=== PATIENT | female | born 1945 | race Caucasian/White ===

== ENCOUNTER 2018-02-09 07:06 | Inpatient (IN) ==
--- NOTE | 2018-02-08 16:23 | Discharge Summary ---
<Shade Mark - Last Filed: 02/09/18 07:53> Orders not resulted at time of discharge: Pending orders 02/09/18 01:00 XR knee LT limited 1-2V [XR] Routine XR knee RT limited 1-2V [XR] Routine Hemoglobin and Hematocrit [HEME] Routine 02/09/18 07:48 US anesthesia pain block [US] Routine Date of Encounter: 02/09/18 - Discharge Diagnosis (1) Obesity (BMI 35.0-39.9 without comorbidity) Priority: Secondary Status: Chronic (2) Osteoarthritis of knees, bilateral Priority: Primary Status: Chronic Qualifiers: Osteoarthritis type: unspecified Qualified Code(s): M17.0 - Bilateral primary osteoarthritis of knee (3) Status post total knee replacement, bilateral Priority: Primary Status: Acute (4) HTN (hypertension) Priority: Secondary Status: Chronic Qualifiers: Hypertension type: unspecified Qualified Code(s): I10 - Essential (primary ) hypertension (5) Diabetes mellitus Priority: Secondary Status: Chronic Qualifiers: Diabetes mellitus type: type 2 Diabetes mellitus ad terminal makeup operator insulin use: without detention use Diabetes mellitus complication status: with unspecified complications Qualified Code(s): E11.8 - Type 2 diabetes mellitus with unspecified complications - Hospital Course Hospital course: Ms. Santos is a 72 year old female - Time Spent with Patient Total time spent providing and/or coordinating discharge services: - Discharge Medications Home Medications: Aspirin Enteric Coated [Aspirin EC] 325 mg PO BID 10 Days #20 tablet. [Rx] OxyCODONE Immed Rel [Roxicodone 5 MG] 5 mg PO Q6HR PRN 7 Days #28 tablet [Rx] Amlodipine Besylate 10 mg PO DAILY 02/09/18 [History] Cholecalciferol (D-3) [Vitamin D] 3,000 unit PO DAILY 02/09/18 [History] Cyanocobalamin (Vitamin B-12) [Vitamin B-12] 1,000 mcg PO DAILY 02/09/18 [ History] Glimepiride [Amaryl] 1 mg PO HS 02/09/18 [History] Sitagliptin Phosphate [Januvia] 50 mg PO HS 02/09/18 [History] Valsartan 160 mg PO HS 02/09/18 [History] Allergies/Adverse Reactions: 3 Allergy/AdvReac Type Severity Reaction Status Date / Time NSAIDS (Non-Steroidal AdvReac Vomiting Verified 02/09/18 07:57 Anti-Inflamma simvastatin [From Zocor] AdvReac Dizziness Verified 02/09/18 07:57 Primary care physician: Ambreen Ng - Patient Status Disposition: Transfer SNF Condition: Good - Discharge Instructions Instructions: Anemia (GEN) Follow Up With: Ambreen Ng CNP [Primary Care Provider] - Kati Sandra CNP [Family Provider] - <Kita Pickens E - Last Filed: 02/12/18 17:56> Orders not resulted at time of discharge: Pending orders 02/09/18 01:00 XR knee LT limited 1-2V [XR] Routine XR knee RT limited 1-2V [XR] Routine Hemoglobin and Hematocrit [HEME] Routine Date of Encounter: 02/12/18 Time of Encounter: 13:40 - Discharge Diagnosis (1) Osteoarthritis of knees, bilateral Priority: Primary Status: Chronic Qualifiers: Osteoarthritis type: unspecified Qualified Code(s): M17.0 - Bilateral primary osteoarthritis of knee (2) Status post total knee replacement, bilateral Priority: Primary Status: Acute (3) HTN (hypertension) Priority: Secondary Status: Chronic Qualifiers: Hypertension type: unspecified Qualified Code(s): I10 - Essential (primary ) hypertension (4) Diabetes mellitus Priority: Secondary Status: Chronic Qualifiers: Diabetes mellitus type: type 2 Diabetes mellitus detention insulin use: without ad terminal makeup operator use Diabetes mellitus complication status: with unspecified complications Qualified Code(s): E11.8 - Type 2 diabetes mellitus with unspecified complications (5) Obesity Priority: Secondary Status: Chronic Qualifiers: Obesity type: unspecified obesity type Obesity classification: unspecified obesity classification Serious obesity comorbidity presence: unspecified whether serious comorbidity present Qualified Code(s): E66.9 - Obesity, unspecified (6) Acute blood loss anemia Priority: Secondary Status: Resolved - Hospital Course Hospital course: Ms. Santos is a 72 year old female POD#3 s/p Date of procedure: 02/09/18 Pre-op diagnosis: Bilateral knee arthritis Post-op diagnosis: same Procedure: Bilateral robotic-assisted Total knee replacement Patient seen at bedside. Patient resting comfortably in chair with male family member at bedside with no concerns or questions at this time. Denies issues overnight. Alert and oriented x 3 Bilateral knee incisions intact with no drainage noted dressings. No calf tenderness to palpation bilaterally. Neurovascularly intact bilateral lower extremities. Labwork reviewed. Patient received 2 units PRBCs on 02/11/18 with improvement in H /H thereafter. Vital signs reviewed. Pain control: Adequate - tizanidine added to help with muscle spasms which provided relief. Participating in PT. All questions and concerns addressed. Educated on use of incentive spirometer, ambulation, and hydration. Patient educated on post-operative restrictions and care. Addressed: see above. D/C plan: [facility] today Vital Signs Temp Pulse Resp BP Pulse Ox 02/12/18 10:31 98.5 F 75 17 124/64 92 02/12/18 07:42 98.6 F 81 18 164/76 93 02/12/18 03:47 98.9 F 76 16 138/74 92 02/11/18 23:51 98.6 F 80 17 153/82 94 02/11/18 19:40 99.0 F 87 128/72 92 02/11/18 19:03 99.0 F 90 16 121/62 92 Intake and Output 02/12/18 02/12/18 02/12/18 07:59 15:59 23:59 Intake Total 480 / 480 Balance 480 / 480 Intake: Oral 480 / 480 Other: Meal Lunch Percent of Meal Consumed 100% # Voids 1 Weight 93.8 kg Blood Glucose* 96 132 Patient Weight 02/12/18 23:59 Weight 93.8 kg All Lab Results (24 Hours) 02/11/18 02/11/18 02/12/18 Range/Units 07:43 20:40 04:30 Hgb 10.0 L D (11.5-15.4) g/dL Hct 29.9 L (35.3-44.9) % POC Glucose 137 H (70-99) mg/dL Crossmatch See Detail 02/12/18 02/12/18 Range/Units 07:08 11:28 Hgb (11.5-15.4) g/dL Hct (35.3-44.9) % POC Glucose 96 132 H (70-99) mg/dL Crossmatch - Time Spent with Patient Total time spent providing and/or coordinating discharge services: Less than 30 minutes Date of admission: 02/09/18 Primary care physician: Ambreen Ng Anticipated date of discharge: 02/12/18 - Patient Status Functional capacity at discharge: uses cane/walker Overall status at discharge: patient is progressing back to baseline - Diet and Activity Activity: as per physical therapy Diet: advance to your usual diet
--- NOTE | 2018-02-08 16:25 | Physician Discharge Referral ---
Home Health/Hosp Referral Info Transfer to: Home Health Attending Provider: Dr. Shade Mark Provider in Charge Post Discharge: PCP - Diagnosis (1) Osteoarthritis of knees, bilateral Priority: Primary Status: Chronic (2) Status post total knee replacement, bilateral Priority: Primary Status: Acute (3) HTN (hypertension) Priority: Secondary Status: Chronic (4) Diabetes mellitus Priority: Secondary Status: Chronic (5) Obesity Priority: Secondary Status: Chronic - Respiratory Orders Smoking Cessation: Smoking cessation has been advised. For more information, call the [place] Tobacco Quit Line at 0-802-XVLH-NOW. - Dressing/Wound Care Site: bilateral knees Type of Dressing/Treatments w/Frequency: Opsite placed. Keep dressing intact until first follow up appointment. If greater than 50% saturated, notify office, remove dressing and place appropriate dressing back in place. Leave Zipline intact. Opsite dressing is water resistant, not water-proof. OK to shower, but do not get dressing wet. - Diet/Nutrition Diet/Nutrition Orders: Regular - Activity Activity Orders: Up ad jolly, Ambulate, Chair, Walker Activity: List: Total Knee replacement Precautions x 6 weeks Apply cold therapy wrap 3-6x/day for 20 minutes at a time. Encourage ambulation throughout the day and incentive spirometer 10x/hour. Elevate affected extremity above heart as tolerated. Brace: Wear knee immobilizer at night x 2 weeks. - Services Needed Following services are medically necessary services: Nursing, Home Health Aide, Physical Therapy, Occupational Therapy, Med Social Work - Transfer Medications Prescriptions: OxyCODONE Immed Rel [Roxicodone 5 MG] 5 mg PO Q6HR PRN 7 Days #28 tablet PRN Reason: Severe Pain Aspirin Enteric Coated [Aspirin EC] 325 mg PO BID 10 Days #20 tablet. Home Medications: Aspirin Enteric Coated [Aspirin EC] 325 mg PO BID 10 Days #20 tablet. [Rx] OxyCODONE Immed Rel [Roxicodone 5 MG] 5 mg PO Q6HR PRN 7 Days #28 tablet [Rx] Allergies/Adverse Reactions: 3 Allergy/AdvReac Type Severity Reaction Status Date / Time NSAIDS (Non-Steroidal AdvReac Vomiting Verified 01/28/18 09:37 Anti-Inflamma simvastatin [From Zocor] AdvReac Dizziness Verified 01/28/18 09:37 Certification: Further, I certify that my clinical findings support that this patient is homebound (i.e. absences from home require considerable and taxing effort and are for medical reasons or muslim services or infrequently or short duration when for other reasons) because: Homebound Reason: Post-surgery restriction and or conditions limit ability to leave home Attestation: My signature below is to certify that this patient is under my care and that I, or nurse practitioner, or a physician pediatric medical assistant working with me, has a face-to- face encounter with this patient.
--- NOTE | 2018-02-09 07:14 | Anesthesia Evaluation PreOp ---
Date of Encounter: 02/09/18 - Past History Planned Operation: Bilateral Total Knee Arthroplasty : No Medications and Allergies Aspirin Enteric Coated [Aspirin EC] 325 mg PO BID 10 Days #20 tablet. [Rx] OxyCODONE Immed Rel [Roxicodone 5 MG] 5 mg PO Q6HR PRN 7 Days #28 tablet [Rx] 3 Allergy/AdvReac Type Severity Reaction Status Date / Time NSAIDS (Non-Steroidal AdvReac Vomiting Verified 01/28/18 09:37 Anti-Inflamma simvastatin [From Zocor] AdvReac Dizziness Verified 01/28/18 09:37 - Meds/Allergy Pre-op Review Medications Reviewed: Yes Allergies Reviewed: Yes Anesthesia Results - Labs Laboratory Tests 01/28/18 01/28/18 01/28/18 09:45 09:45 09:45 WBC 7.8 Hgb 14.2 Hct 44.0 Plt Count 214 INR 1.0 Sodium 139 Potassium 4.1 Chloride 107 Carbon Dioxide 27 BUN 23 Creatinine 0.90 Hemoglobin A1c 01/28/18 09:45 WBC Hgb Hct Plt Count INR Sodium Potassium Chloride Carbon Dioxide BUN Creatinine Hemoglobin A1c 5.8 H - Imaging EKG: report reviewed (SB) Anesthesia Assess/Plan Anesthetic Plan: General, Regional Autologous Blood: Yes Monitoring Plan: Standard Monitors Recovery Plan: PACU
[2018-02-09] MEDS ORDERED: *HR* Succinylcholine 200 MG/10 ML VIAL IVP ONE (07:16)
[2018-02-09] MEDS ORDERED: Ondansetron 4 MG/2 ML VIAL ONE (07:16)
[2018-02-09] MEDS ORDERED: *HR* FentaNYL (PF) 100 MCG/2 ML VIAL ONE ×3 (07:16→13:46)
[2018-02-09] MEDS ORDERED: Dexamethasone 4 MG/ML VIAL ONE (07:16)
[2018-02-09] MEDS ORDERED: *HR* Midazolam HCl 2 MG/2 ML VIAL ONE (07:16)
[2018-02-09] MEDS ORDERED: *HR* Rocuronium Bromide 50 MG/5 ML VIAL ONE (07:16)
[2018-02-09] MEDS ORDERED: Lidocaine -MPF 2% 2 ML VIAL ONE (07:16)
[2018-02-09] MEDS ORDERED: Lidocaine -MPF 4% 5 ML AMPUL ONE (07:16)
[2018-02-09] MEDS ORDERED: *HR* Propofol 200 MG/20 ML VIAL IVP ONE (07:16)
[2018-02-09] MEDS ORDERED: CeFAZolin Syr 2,000MG/20 ML 2,000 MG/20 ML SYRINGE IVPB ONE (07:23)
[2018-02-09] MEDS ORDERED: Ethanol\\Acetic Acid\\Na Ace\\Ben 1,000 ML IRRIG.SOLN IR ONE (07:28)
[2018-02-09] MEDS ORDERED: Ringers Solution, Lactated 1,000 ML IVC SCH (07:30)
--- NOTE | 2018-02-09 07:39 | Anesthesia Evaluation PreOp ---
Date of Encounter: 02/09/18 Time of Encounter: 07:37 - Past History Planned Operation: Bilateral TKR Robotic Cardiac History: HTN Pulmonary History: Denies Any Significant HX LABOR AND DELIVERY NURSE History: Denies Any Significant HX Other Medical History: Diabetes Type II, GERD (Occasional heartburn (takes TUMS) ), Other (Obesity, BMI 36) Anesthesia History: No Prior Anesthetic Complications, Past Anesthesia Medications and Allergies Aspirin Enteric Coated [Aspirin EC] 325 mg PO BID 10 Days #20 tablet. [Rx] OxyCODONE Immed Rel [Roxicodone 5 MG] 5 mg PO Q6HR PRN 7 Days #28 tablet [Rx] 3 Allergy/AdvReac Type Severity Reaction Status Date / Time NSAIDS (Non-Steroidal AdvReac Vomiting Verified 01/28/18 09:37 Anti-Inflamma simvastatin [From Zocor] AdvReac Dizziness Verified 01/28/18 09:37 - Meds/Allergy Pre-op Review Medications Reviewed: Yes Allergies Reviewed: Yes Beta Blockers on Current Med List: No Anesthesia Results - Labs Laboratory Tests 01/28/18 01/28/18 01/28/18 09:45 09:45 09:45 Hgb 14.2 Hct 44.0 Plt Count 214 PT 10.9 INR 1.0 APTT 28.7 Sodium 139 Potassium 4.1 Carbon Dioxide 27 BUN 23 Creatinine 0.90 Est GFR (Non-Af Amer) > 60 Hemoglobin A1c 01/28/18 09:45 Hgb Hct Plt Count PT INR APTT Sodium Potassium Carbon Dioxide BUN Creatinine Est GFR (Non-Af Amer) Hemoglobin A1c 5.8 H - Imaging EKG: report reviewed (SINUS BRADYCARDIA) Anesthesia Exam O2 Sat Height 1.57 m Height 1.57 m Weight 89.811 kg Weight 89.811 kg O2 Sat by Pulse Oximetry 97 Vital Signs/O2 Sat/Glucose, Most Recent Temp Pulse Resp BP Pulse Ox 97.9 F 83 18 139/81 97 02/09/18 07:27 02/09/18 07:27 02/09/18 07:27 02/09/18 07:27 02/09/18 07:27 Blood Glucose* 127 - HEENT Pupil (Motor): Pupils equal Mallampati: II Teeth: Edentulous Oral Opening: Greater than 3 - Cardiac Rhythm: Regular - Pulmonary Breath Sounds: bilateral Clear Respiratory Effort: Symmetrical Anesthesia Assess/Plan ASA Score: 3 Modified Carlyn Scale for Level of Consciousness: Cooperative, oriented, and tranquil Anesthetic Plan: Regional (SAB for primary anesthesia, Bilateral adductor canal for post operative pain) Monitoring Plan: Standard Monitors Recovery Plan: PACU
[2018-02-09] MEDS ORDERED: Lidocaine -MPF 2% 5 ML VIAL ONE (07:43)
[2018-02-09] MEDS ORDERED: ROPIVACAINE HCL/PF 0.5% 30 ML VIAL ONE (07:44)
--- NOTE | 2018-02-09 07:53 | History & Physical Report ---
Date of Encounter: 02/09/18 Time of Encounter: 07:52 24 Hour HP Update - Instructions Instructions: If the History and Physical is less than 30 days old and was completed prior to A.M. admission and or procedure and has NOT been updated on calendar day of procedure please complete this update prior to performing procedure. - Update Patient reports changes in Medical Condition: No Changes in examination, assessment, or condition: No Changes in Medication: No Preop tests/diagnostics Reviewed: Yes Surgery Remains Indicated: Yes Consent for Planned Operative Procedure(s) Verified: Yes - Pre-Operative Checklist Preoperative Checklist Indicated: No Prophylactic Antibiotic Ordered: Yes Is VTE Prophylaxis Indicated?: Yes
[2018-02-09] MEDS ORDERED: EPHEDrine 50 MG/ML VIAL ONE (08:50)
[2018-02-09] MEDS ORDERED: *HR* PHENYLEPHRINE 1,000 MCG/10 ML SYRINGE IVP ONE (09:02)
[2018-02-09] MEDS ORDERED: Acetaminophen IV 1,000 MG/100 ML INFUS..BTL ONE (09:03)
[2018-02-09] MEDS ORDERED: Ondansetron 4 MG/2 ML VIAL IVP PRN ×2 (09:17→12:06)
[2018-02-09] MEDS ORDERED: Fat Emulsions 20% 250 ML IVP ONE (09:17)
[2018-02-09] MEDS ORDERED: Naloxone 0.4 MG/ML INJ IVP PRN ×2 (09:17→12:06)
[2018-02-09] MEDS ORDERED: *HR* HYDROmorphone (PF) 1 MG/ML SYRINGE IVP PRN (09:17)
[2018-02-09] MEDS ORDERED: 0.9 % Sodium Chloride 500 ML IVC ONE (09:17)
--- NOTE | 2018-02-09 10:13 | Anesthesia Procedures ---
Date of Encounter: 02/09/18 Time of Encounter: 08:08 Procedures: Anesthesia - Epidural/Spinal Patient ID/Chart reviewed: Yes Patient examined: Yes Consent Obtained: Yes Supplemental Oxygen: Nasal Cannula Supplemental Oxygen Rate (L/min): 2 Sedation: Versed (mg): 1 Sedation: Fentanyl (mcg): 50 Site Prep: Aseptic Technique, Sterile prep and drape, Povidone-Iodine 1%, 0.5% Chlorhexidine/Alcohol Patient position: upright Local Anesthetic: Lidocaine 1% Interspace Used: L3-L4 Blood: No CSF: Yes Paresthesia: No Spinal Needle Gauge: 22 Spinal Dose: 2ml 0.75% Bupivicaine (15mg) Procedure: Bilateral total knee arthroplasty Vitals + FHT's: Vital Signs/O2 Sat/Glucose, Most Recent Temp Pulse Resp BP Pulse Ox 97.9 F 71 16 164/83 98 02/09/18 07:27 02/09/18 08:30 02/09/18 08:30 02/09/18 08:30 02/09/18 08:30 Blood Glucose* 127 - Nerve Block Procedure Date: 02/09/18 Time: 08:14 Allergies/Adv Reactions: Allergies noted, no reactions noted Pre-op Diagnosis: Bilateral knee arthritis Surgical Procedure: Bilateral total knees Checklist: Correct Patient Identifier, Correct procedure, History checked Correct side: Right (Bilateral) Blood Thinner: No Monitor Applied: EKG, BP, Pulse Oximetry Supplemental Oxygen via Nasal Cannula (L/min): 2 Indication: Post Op Analgesia Pre-op Neuro Deficits: No Block Type: Other (Bilateral adductor canal blocks) Sterile Technique: Yes Ultrasound used: Yes Anatomy identified: Yes Visual spread of Local: Yes Blood on Needle Aspiration: No Smooth Injection of Local: Yes Pain with Injection of Local: No Prep: Chlorhexadine Needle: 21 x 100 mm Stimuplex Local: Ropivacaine (30ml 0.25%, decadron 4mg (left leg), 30ml 0.25%, 4mg decadron (right leg)) Number of Attempts: 1 Complications: None/effective block Vitals: Vital Signs/O2 Sat/Glucose, Most Recent Temp Pulse Resp BP Pulse Ox 97.9 F 71 16 164/83 98 02/09/18 07:27 02/09/18 08:30 02/09/18 08:30 02/09/18 08:30 02/09/18 08:30 Blood Glucose* 127
--- NOTE | 2018-02-09 10:27 | Orthopedic Operative Note ---
Date of procedure: 02/09/18 Pre-op diagnosis: Bilateral knee arthritis Post-op diagnosis: same Procedure: Procedure: Bilateral robotic-assisted Total knee replacement Estimated blood loss: 500 cc Hardware: Metal and polyethylene replacement. Abby Femur: 2 Tibia: 3 TS insert: 11 Patella: 36 Exam Under anesthesia: Bilateral 13 degree flexion contracture and 30 degree varus deformities as calculated by the robot full flexion and no instability Procedural Notes: Grade 4 arthritic changes all 3 compartments. Operative procedure: The patient was brought to the operating room and placed on the operating room table. After general anesthesia was administered the operative knee was examined. Findings were noted in the exam under anesthesia. The operative extremity was prepped and draped in sterile surgical fashion. The patient received IV antibiotics prior to skin incision. The next's dictation for both knees any differences will be highlighted surgery began with the left knee followed by the right knee A standard midline incision was made centered over the patella. The incision was made through the skin and subcutaneous tissue. A medial parapatellar tendon approach was performed. Care was taken to preserve tissue along the medial aspect of the patella. And to protect the patella tendon. The deep MCL was released off the medial tibia. The infra patella fat pad was excised. The patella was everted and cut was made at the level of the insertion of the quadriceps and patella tendon. The patella was sized to 36 the guide was seated and the lug holes are drilled. Knee was brought into flexion. Patient noted to have Steinmann pins were placed in the tibia and the femur for the tibial and femoral arrays respectively. Checkpoints were also placed in the tibia and the femur for calculation purposes. The knee including the femur and the tibial registered. Osteophytes, ACL and PCL were excised at this point. Extension and flexion were assessed with a valgus stress components were adjusted on the computer to balance the knee. Femoral cuts were made first with robotic assistance, these included the anterior cut posterior cuts chamfer cuts. Tibial cut was then performed with robotic assistance as well. Bone fragments were removed, as well as the medial and lateral meniscus. The size 2 femoral guide was seated box cut was made lug holes are drilled. The size 3 tibial tray was seated and prepared with the fin cutter. Trial reduction with the 11 TS [place] revealed extension of 0 degree bilateral and 6 degree varus alignment left knee 7 degree varus alignment right knee full flexion. No varus valgus instability. Trial reduction revealed excellent patella tracking. All trial components were removed all bony surfaces were irrigated. The Tibia was seated followed by the femur, The [place] size 11 was seated and secured patella. Patient had similar findings for motion and stability. The knee was closed by the PA. The knee was then irrigated out with 2 L of pulse irrigation. The extensor mechanism was closed with #2 FiberWire suture and #2 PDS suture. The subcutaneous tissue was then irrigated and closed deep with #1 PDS suture superficially with 0 PDS suture and skin was closed with zip tie The patient was then placed in a sterile dressing and a postoperative brace extubated and transferred to recovery room in stable condition. Anesthesia: GETA Surgeon: Shade Mark Was there an assistant hairstylist present: Yes Manager Economic: Sara Wilcox Estimated blood loss (cc): 500 Condition: stable Disposition: PACU
[2018-02-09] MEDS ORDERED: *HR* Morphine 10 MG/ML VIAL ONE (10:56)
[2018-02-09] MEDS: *HR* HYDROmorphone (PF) 1 MG/ML SYRINGE IVP PRN ×2 (11:29→11:39)
[2018-02-09 11:50] LABS: Hematocrit 34.9 % (35.3-44.9); Hemoglobin 11.6 g/dL (11.5-15.4)
[2018-02-09] MEDS ORDERED: traMADol 50 MG TABLET PO PRN (12:06)
[2018-02-09] MEDS ORDERED: *HR* Dextrose 50 % in Water (Syg) 50 ML SYRINGE IVP PRN (12:06)
[2018-02-09] MEDS ORDERED: MOM Conc 10 ML UD.LIQ PO PRN (12:06)
[2018-02-09] MEDS ORDERED: Sennosides 8.6 MG TABLET PO PRN (12:06)
[2018-02-09] MEDS ORDERED: Temazepam 15 MG CAPSULE PO PRN (12:06)
[2018-02-09] MEDS ORDERED: Dextrose Gel 15 GM/37.5 ML TUBE PO PRN ×2 (12:06)
[2018-02-09] MEDS ORDERED: D5% in Water 1,000 ML IVC PRN (12:06)
[2018-02-09] MEDS: Insulin LISPRO 300 UNITS/3 ML VIAL SQ SCH ×3 (12:15→20:32)
[2018-02-09] MEDS: amLODIPine 5 MG TABLET PO SCH (13:26)
[2018-02-09] MEDS: Cholecalciferol (D-3) 1,000 UNIT TABLET PO SCH (13:26)
[2018-02-09] MEDS: Cyanocobalamin (B-12) 1,000 MCG TABLET PO SCH (13:26)
[2018-02-09] MEDS: *HR* Enoxaparin 30 MG/0.3 ML SYRINGE SQ SCH (17:27)
[2018-02-09] MEDS ORDERED: *HR* Enoxaparin 30 MG/0.3 ML SYRINGE SQ SCH (18:00)
--- NOTE | 2018-02-09 18:43 | Anesthesia Evaluation Post Op ---
Date of Encounter: 02/09/18 Time of Encounter: 12:02 Notes: Patient's vital signs have been reviewed. Patient is stable postoperatively and has adequately recovered from anesthesia. Patient is determined to have stable airway patency and respiratory function including respiratory rate and oxygen saturation. Patient has a stable heart rate, blood pressure and adequate hydration. Patients mental status is acceptable. Patients temperature is appropriate. Pain and nausea are adequately controlled. - Discharge PostOp Status: Transfer Patient to floor
[2018-02-09] MEDS: Ringers Solution, Lactated 1,000 ML IVC SCH (19:00)
[2018-02-09] MEDS: *HR* Glimepiride 2 MG TABLET PO SCH (20:28)
[2018-02-09] MEDS: *HR* OxyCODONE/APAP 5/325 TABLET PO PRN (20:28)
[2018-02-09] MEDS: *HR* SitaGLIPtin 25 MG TABLET PO SCH (20:29)
[2018-02-10 01:30] LABS: Hematocrit 30.1 % (35.3-44.9)
[2018-02-10 01:48] LABS: Calcium 8.9 mg/dL (8.6-10.3); Potassium 4.7 mEq/L (3.5-5.1)
[2018-02-10] MEDS: *HR* OxyCODONE Immed Rel 5 MG TABLET PO PRN ×3 (03:54→15:42)
[2018-02-10] MEDS: *HR* Enoxaparin 30 MG/0.3 ML SYRINGE SQ SCH ×2 (05:48→17:55)
--- NOTE | 2018-02-10 06:45 | Orthopedics Progress Note ---
Date of Encounter: 02/10/18 Time of Encounter: 06:45 - Assessment and Plan (1) Obesity (BMI 35.0-39.9 without comorbidity) Current Visit: Yes Status: Chronic (2) Osteoarthritis of knees, bilateral Current Visit: No Status: Chronic Qualifiers: Osteoarthritis type: unspecified Qualified Code(s): M17.0 - Bilateral primary osteoarthritis of knee (3) Status post total knee replacement, bilateral Current Visit: No Status: Acute (4) HTN (hypertension) Current Visit: No Status: Chronic Qualifiers: Hypertension type: unspecified Qualified Code(s): I10 - Essential (primary ) hypertension (5) Diabetes mellitus Current Visit: No Status: Chronic Qualifiers: Diabetes mellitus type: type 2 Diabetes mellitus longterm insulin use: without intermediate frame tender use Diabetes mellitus complication status: with unspecified complications Qualified Code(s): E11.8 - Type 2 diabetes mellitus with unspecified complications Subjective Interval history: Patient was seen this morning doing well without complaints. Afebrile vital signs stable. Operative extremity: Neurovascularly intact Dressing clean dry and intact Calves nontender Assessment and plan: Continue with postoperative care Hematocrit 30 discharged today Objective Vital signs: Vital Signs Temp Pulse Resp BP Pulse Ox 02/10/18 06:42 99.1 F 97 16 151/76 96 02/09/18 22:40 97.8 F 72 18 130/66 97 02/09/18 20:00 98 02/09/18 19:57 97.5 F L 90 18 107/68 98 02/09/18 15:24 97.7 F 87 16 107/72 97 02/09/18 14:20 97.5 F L 88 15 104/68 95 02/09/18 13:18 97.4 F L 91 16 106/72 95 02/09/18 12:50 97.4 F L 89 15 115/75 96 02/09/18 12:21 97.3 F L 94 15 124/79 95 02/09/18 12:03 97.2 F L 89 14 119/76 96 02/09/18 11:53 85 16 114/75 95 02/09/18 11:43 82 16 112/76 96 02/09/18 11:33 97.2 F L 87 14 117/74 95 02/09/18 11:23 88 14 138/73 96 02/09/18 11:13 87 16 122/78 96 02/09/18 11:03 97.2 F L 86 12 121/70 98 02/09/18 08:30 71 16 164/83 98 02/09/18 08:16 68 16 160/87 98 02/09/18 08:02 83 15 175/96 97 02/09/18 07:27 97.9 F 83 18 139/81 97 Intake and Output 02/09/18 02/09/18 02/10/18 15:59 23:59 07:59 Intake Total 20 / 20 100 / 100 100 / 100 Output Total 500 / 500 Balance -480 / -480 100 / 100 100 / 100 Intake: IV Fluids 20 / 20 100 / 100 100 / 100 Ancef Syringe 2,000 MG/20 ML 2, 20 / 20 000 mg In 20 ml @ 200 mls/hr IVPB PREOP ONE Rx#:[id number] Ancef 2,000 MG In 0.9 % Sodium 100 / 100 100 / 100 Chloride 100 ML @ 200 mls/hr IVPB Q8HR CHELSE[facility] Rx#:[id number] Output: Estimated Blood Loss 500 / 500 Other: # Voids 1 Blood Glucose* 179 254 - Labs CBC & BMP: 02/10/18 00:56 02/10/18 00:56 Labs: Abnormal lab results Hgb 10.0 g/dL (11.5-15.4) L D 02/10/18 00:56 Hct 30.1 % (35.3-44.9) L 02/10/18 00:56 Sodium 133 mEq/L (136-145) L 02/10/18 00:56 Carbon Dioxide 22 mEq/L (23-29) L 02/10/18 00:56 BUN 27 mg/dL (8-23) H 02/10/18 00:56 Creatinine 1.30 mg/dL (0.60-1.20) H 02/10/18 00:56 Est GFR ( Amer) 49 (> 60) L 02/10/18 00:56 Est GFR (Non-Af Amer) 40 (> 60) L 02/10/18 00:56 Glucose 145 mg/dL (70-105) H 02/10/18 00:56 POC Glucose 254 mg/dL (70-99) H 02/09/18 20:10 - VTE Documentation of Mechanical Device: Venous foot pump, device Consult Discharge Plan - Plan Referrals: Ambreen Ng, ROMMEL [Primary Care Provider] - Kati Sandra CNP [Family Provider] -
[2018-02-10] MEDS: Insulin LISPRO 300 UNITS/3 ML VIAL SQ SCH ×4 (08:50→21:21)
[2018-02-10] MEDS: Cholecalciferol (D-3) 1,000 UNIT TABLET PO SCH (08:50)
[2018-02-10] MEDS: amLODIPine 5 MG TABLET PO SCH (08:50)
[2018-02-10] MEDS: Cyanocobalamin (B-12) 1,000 MCG TABLET PO SCH (08:50)
[2018-02-10] MEDS: tiZANidine 4 MG TABLET PO PRN ×2 (12:41→18:57)
[2018-02-10] MEDS: Ringers Solution, Lactated 1,000 ML IVC SCH (18:09)
--- NOTE | 2018-02-10 18:25 | Event Note ---
Date of Encounter: 02/10/18 Time of Encounter: 12:20 PCR- POD#1 status post bilateral total knee replacement on 02/09/[address] Mark Patient seen at bedside. Patient resting comfortably in bed. She states her son and daughter at her bedside. Alert and oriented x 3 Bilateral knee incisions intact with scant drainage noted to the right knee. Dressings are otherwise dry. No calf tenderness to palpation. Neurovascularly intact bilateral lower extremities. Labwork and medications reviewed. H/H 05/12.1 Vital signs reviewed. Pain control: Adequate - tizanidine added to help with muscle spasms. Participating in PT. All questions and concerns addressed. Educated on use of incentive spirometer, ambulation, and hydration. Patient educated on post-operative restrictions and care. Addressed: see above. D/C plan: [facility] [place] presently awaiting authorization
[2018-02-10] MEDS: *HR* SitaGLIPtin 25 MG TABLET PO SCH (21:21)
[2018-02-10] MEDS: *HR* Glimepiride 2 MG TABLET PO SCH (21:21)
[2018-02-11 01:20] LABS: Hematocrit 24.4 % (35.3-44.9); Hemoglobin 8.3 g/dL (11.5-15.4)
[2018-02-11 01:38] LABS: Calcium 9.1 mg/dL (8.6-10.3); Potassium 4.9 mEq/L (3.5-5.1)
[2018-02-11] MEDS: tiZANidine 4 MG TABLET PO PRN (02:10)
[2018-02-11] MEDS: *HR* Enoxaparin 30 MG/0.3 ML SYRINGE SQ SCH ×2 (05:37→06:56)
[2018-02-11] MEDS: *HR* OxyCODONE/APAP 5/325 TABLET PO PRN (05:38)
[2018-02-11] MEDS ORDERED: Furosemide 20 MG/2 ML VIAL IVP ONE ×2 (06:43→15:15)
--- NOTE | 2018-02-11 06:43 | Orthopedics Progress Note ---
Date of Encounter: 02/11/18 Time of Encounter: 06:42 - Assessment and Plan (1) Obesity (BMI 35.0-39.9 without comorbidity) Current Visit: Yes Status: Chronic (2) Osteoarthritis of knees, bilateral Current Visit: Yes Status: Chronic Qualifiers: Osteoarthritis type: unspecified Qualified Code(s): M17.0 - Bilateral primary osteoarthritis of knee (3) Status post total knee replacement, bilateral Current Visit: No Status: Acute (4) HTN (hypertension) Current Visit: No Status: Chronic Qualifiers: Hypertension type: unspecified Qualified Code(s): I10 - Essential (primary ) hypertension (5) Diabetes mellitus Current Visit: No Status: Chronic Qualifiers: Diabetes mellitus type: type 2 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 Afebrile vital signs stable. Operative extremity: Neurovascularly intact Dressing clean dry and intact Calves nontender Assessment and plan: Continue with postoperative care Hemoglobin 8.3 transfuse 2 units discharge held secondary to require an ECF. Objective Vital signs: Vital Signs Temp Pulse Resp BP Pulse Ox 02/10/18 23:13 98.0 F 75 18 136/73 97 02/10/18 19:00 98.1 F 92 17 119/61 92 02/10/18 15:54 98.4 F 91 16 147/79 95 02/10/18 11:09 98.7 F 84 16 148/71 96 02/10/18 09:05 96 Intake and Output 02/10/18 02/10/18 02/11/18 15:59 23:59 07:59 Intake Total 240 / 240 1120 / 1120 Output Total 150 / 150 700 / 700 Balance 90 / 90 1120 / 1120 -700 / -700 Intake: IV Fluids 1000 / 1000 Lactated Ringers 1,000 ML @ 75 1000 / 1000 mls/hr IVC .[id number] CHELSEY Rx#: [id number] Oral 240 / 240 120 / 120 Output: Urine 150 / 150 700 / 700 Other: Meal Lunch Dinner Percent of Meal Consumed 15% 20% Blood Glucose* 166 190 - Labs CBC & BMP: 02/11/18 00:40 02/11/18 00:40 Labs: Abnormal lab results Hgb 8.3 g/dL (11.5-15.4) L D 02/11/18 00:40 Hct 24.4 % (35.3-44.9) L 02/11/18 00:40 Sodium 130 mEq/L (136-145) L 02/11/18 00:40 BUN 42 mg/dL (8-23) H 02/11/18 00:40 Creatinine 1.59 mg/dL (0.60-1.20) H 02/11/18 00:40 Est GFR ( Amer) 39 (> 60) L 02/11/18 00:40 Est GFR (Non-Af Amer) 32 (> 60) L 02/11/18 00:40 Glucose 132 mg/dL (70-105) H 02/11/18 00:40 POC Glucose 124 mg/dL (70-99) H 02/10/18 17:15 - VTE Documentation of Mechanical Device: Venous foot pump, device Consult Discharge Plan - Plan Referrals: Ambreen Ng CNP [Primary Care Provider] - Kati Sandra CNP [Family Provider] -
[2018-02-11] MEDS: amLODIPine 5 MG TABLET PO SCH (08:14)
[2018-02-11] MEDS: Cyanocobalamin (B-12) 1,000 MCG TABLET PO SCH (08:14)
[2018-02-11] MEDS: Cholecalciferol (D-3) 1,000 UNIT TABLET PO SCH (08:15)
[2018-02-11] MEDS: Insulin LISPRO 300 UNITS/3 ML VIAL SQ SCH ×4 (08:20→21:45)
[2018-02-11] MEDS: Ringers Solution, Lactated 1,000 ML IVC SCH (08:43)
[2018-02-11] MEDS ORDERED: 0.9 % Sodium Chloride 250 ML ONE ×2 (11:28→15:46)
--- NOTE | 2018-02-11 13:05 | Event Note ---
Date of Encounter: 02/11/18 Time of Encounter: 11:50 PCR- POD#2 status post bilateral total knee replacement on 02/09/[address] Mark Patient seen at bedside. Patient resting comfortably in bed with no concerns or questions at this time. Denies issues overnight. Alert and oriented x 3 Bilateral knee incisions intact with scant drainage noted to the right knee, appears old. Dressings are otherwise dry. No calf tenderness to palpation. Neurovascularly intact bilateral lower extremities. Labs; H/H - 8.3/24.4 - receiving 2 units RBC today Vital signs reviewed. Pain control: Adequate - tizanidine added to help with muscle spasms. Participating in PT. All questions and concerns addressed. Educated on use of incentive spirometer, ambulation, and hydration. Patient educated on post-operative restrictions and care. Addressed: see above. D/C plan: [facility] Moreno Moore, pending transfusion
--- NOTE | 2018-02-11 13:10 | Physician Discharge Referral ---
ExtendedCare Referral Info Transfer To: [facility] Provider in Charge: Jas Cavanaugh Diagnosis (1) Status post total knee replacement, bilateral Priority: Primary Status: Acute (2) Osteoarthritis of knees, bilateral Priority: Secondary Status: Chronic (3) Acute blood loss anemia Priority: Secondary Status: Acute (4) Obesity (BMI 35.0-39.9 without comorbidity) Priority: Secondary Status: Chronic (5) Diabetes mellitus Priority: Secondary Status: Chronic (6) HTN (hypertension) Priority: Secondary Status: Chronic Expected Duration of Placement: <30 days Prognosis: Good Aware of Diagnosis: Patient Aware of Prognosis: Patient - Transfer Medications Home Medications: Aspirin Enteric Coated [Aspirin EC] 325 mg PO BID 10 Days #20 tablet. [Rx] OxyCODONE Immed Rel [Roxicodone 5 MG] 5 mg PO Q6HR PRN 7 Days #28 tablet [Rx] Amlodipine Besylate [Amlodipine Besylate] 10 mg PO DAILY 02/09/18 [History] Cholecalciferol (D-3) [Vitamin D] 3,000 unit PO DAILY 02/09/18 [History] Cyanocobalamin (Vitamin B-12) [Vitamin B-12] 1,000 mcg PO DAILY 02/09/18 [ History] Glimepiride [Amaryl] 1 mg PO HS 02/09/18 [History] Sitagliptin Phosphate [Januvia] 50 mg PO HS 02/09/18 [History] Valsartan [Valsartan] 160 mg PO HS 02/09/18 [History] Allergies/Adverse Reactions: 3 Allergy/AdvReac Type Severity Reaction Status Date / Time NSAIDS (Non-Steroidal AdvReac Vomiting Verified 02/09/18 07:57 Anti-Inflamma simvastatin [From Zocor] AdvReac Dizziness Verified 02/09/18 07:57 - Respiratory Orders Smoking Cessation: Smoking cessation has been advised. For more information, call the [place] Tobacco Quit Line at 2-026-IVFU-NOW. - Ancillary Orders May use pressure relief devices daily prn, May go on [place] w/family/respon alliance party w /meds at nurse discretion PRN, May consult with Dentist, Technology Development Intern, Globe Cleaner PRN - Mobility Orders Chair, Ambulate - Rehabiliation Orders Rehab Potential: Good Other: Opsite dressing, leave intact until first post-operative visit. If dressing becomes >50% saturated, contact office, remove dressing and place appropriate dressing in its place. Do not allow for dressing to get wet. Zipline/Eufemia in place, plan to remove at post-operative day #14-16. Total Joint Precautions x 6 weeks Apply cold therapy wrap 3-6x/day for 20 minutes at a time. Encourage ambulation throughout the day Use Incentive spirometer 10x/hour. Elevate affected extremity above heart as tolerated. Brace: Wear knee immobilizer at night x 2 weeks - Treatments Skin tear care topically daily PRN per policy List/Other: Opsite dressing, leave intact until first post-operative visit. If dressing becomes >50% saturated, contact office, remove dressing and place appropriate dressing in its place. Do not allow for dressing to get wet. Zipline/Eufemia in place, plan to remove at post-operative day #14-16. Total Joint Precautions x 6 weeks Apply cold therapy wrap 3-6x/day for 20 minutes at a time. Encourage ambulation throughout the day Use Incentive spirometer 10x/hour. Elevate affected extremity above heart as tolerated. Brace: Wear knee immobilizer at night x 2 weeks.~ - Diet Orders Regular CERTIFICATION: I certify that the transfer of the above named patient to an Extended Care Facility is necessary for the continuing treatment of the diagnosis listed. The above information is true and accurate reflection of patient's current condition. Confidential - Redisclosure prohibited without a patient's written consent.
[2018-02-11] MEDS: *HR* OxyCODONE Immed Rel 5 MG TABLET PO PRN (18:38)
[2018-02-11] MEDS: *HR* Glimepiride 2 MG TABLET PO SCH (21:41)
[2018-02-11] MEDS: *HR* SitaGLIPtin 25 MG TABLET PO SCH (21:42)
[2018-02-12 04:56] LABS: Hematocrit 29.9 % (35.3-44.9)
[2018-02-12] MEDS ORDERED: *HR* Enoxaparin 30 MG/0.3 ML SYRINGE SQ SCH (06:00)
--- NOTE | 2018-02-12 06:39 | Orthopedics Progress Note ---
Date of Encounter: 02/12/18 Time of Encounter: 06:38 - Assessment and Plan (1) Obesity (BMI 35.0-39.9 without comorbidity) Current Visit: Yes Status: Chronic (2) Osteoarthritis of knees, bilateral Current Visit: Yes Status: Chronic Qualifiers: Osteoarthritis type: unspecified Qualified Code(s): M17.0 - Bilateral primary osteoarthritis of knee (3) Status post total knee replacement, bilateral Current Visit: No Status: Acute (4) HTN (hypertension) Current Visit: No Status: Chronic Qualifiers: Hypertension type: unspecified Qualified Code(s): I10 - Essential (primary ) hypertension (5) Diabetes mellitus Current Visit: No Status: Chronic Qualifiers: Diabetes mellitus type: 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 Afebrile vital signs stable. Operative extremity: Neurovascularly intact Dressing clean dry and intact Calves nontender Assessment and plan: Continue with postoperative care [facility] 10, dc today Objective Vital signs: Vital Signs Temp Pulse Resp BP Pulse Ox 02/12/18 03:47 98.9 F 76 16 138/74 92 02/11/18 23:51 98.6 F 80 17 153/82 94 02/11/18 19:40 99.0 F 87 128/72 92 02/11/18 19:03 99.0 F 90 16 121/62 92 02/11/18 16:25 98.7 F 93 16 144/69 02/11/18 15:50 99.5 F 92 16 149/72 02/11/18 14:56 98.5 F 92 16 145/72 02/11/18 12:08 98.0 F 96 16 129/79 93 02/11/18 11:55 98.6 F 84 16 147/79 92 02/11/18 11:01 97.9 F 90 16 157/68 93 02/11/18 08:24 97 02/11/18 06:58 98.2 F 75 16 128/74 98 Intake and Output 02/11/18 02/11/18 02/12/18 15:59 23:59 07:59 Intake Total 245 / 245 940 / 940 Output Total 450 / 450 Balance 245 / 245 490 / 490 Intake: Oral 120 / 120 240 / 240 Blood Product 125 / 125 700 / 700 Rbcs Leuko Poor As-1 Unit 125 / 125 [id number] Rbcs Leuko Poor As-1 Unit 700 / 700 [id number] Output: Urine 450 / 450 Other: Meal Breakfast Dinner Percent of Meal Consumed 50% 75% # Voids 1 1 Weight 93.8 kg Blood Glucose* 120 137 Patient Weight 02/12/18 23:59 Weight 93.8 kg - Labs CBC & BMP: 02/12/18 04:30 02/11/18 00:40 Labs: Abnormal lab results Hgb 10.0 g/dL (11.5-15.4) L D 02/12/18 04:30 Hct 29.9 % (35.3-44.9) L 02/12/18 04:30 Sodium 130 mEq/L (136-145) L 02/11/18 00:40 BUN 42 mg/dL (8-23) H 02/11/18 00:40 Creatinine 1.59 mg/dL (0.60-1.20) H 02/11/18 00:40 Est GFR ( Amer) 39 (> 60) L 02/11/18 00:40 Est GFR (Non-Af Amer) 32 (> 60) L 02/11/18 00:40 Glucose 132 mg/dL (70-105) H 02/11/18 00:40 POC Glucose 137 mg/dL (70-99) H 02/11/18 20:40 - VTE Documentation of Mechanical Device: Venous foot pump, device Consult Discharge Plan - Plan Referrals: Ambreen Ng CNP [Primary Care Provider] - Kati Sandra CNP [Family Provider] -
[2018-02-12] MEDS: Insulin LISPRO 300 UNITS/3 ML VIAL SQ SCH ×2 (08:15→11:33)
[2018-02-12] MEDS: Cyanocobalamin (B-12) 1,000 MCG TABLET PO SCH (08:19)
[2018-02-12] MEDS: Cholecalciferol (D-3) 1,000 UNIT TABLET PO SCH (08:19)
[2018-02-12] MEDS: amLODIPine 5 MG TABLET PO SCH (08:19)
[2018-02-12 10:37] VITALS: BP 124/64
== END 2018-02-12 14:38 | DRG 462 ==
LOC: SAMDAY 07:06 → 3NENU 12:05
PROVIDERS: ADMIT Orthopaedic Surgery; ATTEND Orthopaedic Surgery